=== PATIENT | male | born 2000 | race Caucasian/White ===

== ENCOUNTER 2023-02-12 10:19 | Emergency (ER) | payer BC, SELFPAY ==
[2023-02-12 10:20] VITALS: BP 144/66; PULSE 76; RESP 14; TEMP 36.7; O2SAT 98; BMI 37.2
--- NOTE | 2023-02-12 10:30 | US_ITS ---
INDICATION: PAIN EXAMINATION: Ultrasound US Abdomen Limited (quadrant) TECHNIQUE: Perkins scale and color doppler imaging was performed of the right upper quadrant. COMPARISON: FINDINGS: LIVER: . There is normal size measuring 16.9 cm in greatest dimension. There is fatty infiltration of the liver. No focal hepatic lesion. There is no free fluid. GALLBLADDER AND BILIARY TREE: No shadowing gallstone, pericholecystic fluid or gallbladder wall thickening is demonstrated. The proximal common bile duct measures 3.3 mm, which is within normal limits for the patient''s age. Songraphic Craig''s sign: Negative. PANCREAS: No focal abnormality is demonstrated in the pancreas. No pancreatic ductal dilatation. RIGHT KIDNEY: Right kidney appears within normal limits in size and echogenicity. US/Gallbladder IMPRESSION: Unremarkable ultrasound of the abdomen right upper quadrant. Electronically Signed: Surya Torre, at 11:52 EDT ,
--- NOTE | 2023-02-12 10:31 | EDS_ITS ---
HPI HPI - GI History of Present Illness Chief Complaint: Abd Pain Narrative Narrative: 22-year-old male past medical history of depression and anxiety for which he takes Lexapro, presents with nausea and vomiting and epigastric to right upper quadrant pain. He relates history that over the last 3 weeks he has had pain after eating mainly in the right upper quadrant to epigastrium. It is more of a sharp, stabbing pain at times. Today, although he has not eaten anything, he felt nauseated and had pain in the epigastrium to right upper quadrant. He started dry heaving, and may have vomited bilious material, but he could not stop retching. He noticed that later there were blood tinges in his bilious vomit. He denies any other bleeding diathesis, does not take any blood thinners. He does also note that he self diagnosed himself with GERD, and is trying to watch his diet because he wants to avoid taking medication. He is a smoker/vaper. He rarely drinks alcohol. He denies any exacerbating or alleviating factors. PFSH [facility] Home Medications omeprazole 20 mg capsule,delayed release 20 mg PO DAILY #30 CAPSULES 02/12/23 [Rx Last Taken Unknown] Allergy/AdvReac Type Severity Reaction Status Date / Time No Known Allergies Allergy Verified 02/12/23 10:22 ROS ROS ED ROS Narrative Constitutional: No fever, no chills. HEENT: No sore throat. No neck pain. No loss of vision. No rhinorrhea. Cardiovascular: No chest pain. No palpitations. No pedal edema. Respiratory: No cough, no shortness of breath. Abdominal: Epigastric to right upper quadrant abdominal pain. Positive nausea and vomiting today. Blood-tinged emesis, no ivelisse hematemesis. No diarrhea. Genitourinary: No dysuria. No hematuria. Musculoskeletal: No myalgias. No arthralgias. Neurologic: No headaches. No dizziness. No lightheadedness. Skin: No rash. No change in color. Psychiatric: No depression. No anxiety. EXAM Physical Exam Narrative Exam Narrative: Afebrile. Vital signs noted. HEENT: Normocephalic. Atraumatic. PERRL, EOMI. Neck soft and supple. No point tenderness or step off. Cardiovascular: Regular rate and rhythm. No murmurs, rubs, or gallops appreciated. Respiratory: No tachypnea. Lungs clear to auscultation bilaterally. Gastrointestinal: Abdomen soft, mild tenderness to palpation in the epigastrium to right upper quadrant, with normoactive bowel sounds. No rebound or guarding. Negative Craig sign. Neurological: Awake. Alert. Nonfocal, nonlateralizing. Skin: No rash. Normal color. No pallor. Musculoskeletal: No pedal edema. Full range of motion extremities. Const Vital Signs: 02/12/23 10:20 Temperature 98.1 F Temperature Source Temporal Pulse Rate 76 Respiratory Rate 14 Blood Pressure 144/66 H Blood Pressure Mean 92 Pulse Ox 98 Oxygen Delivery Method Room Air MDM MDM MDM Narrative Medical decision making narrative: Regarding the patient's blood tinged emesis, I do think that he probably has a Ambar-Castro tear. I do not feel NG tube is indicated. Given that he has had pain after eating, concern would be for biliary colic versus gallstone ingram creatitis. Comprehensive work-up was pursued. I do not feel CT imaging is indicated but rather ultrasound of the right upper quadrant. I will obtain laboratory work including CBC, CMP, and lipase. He declined any analgesia here or antiemetic. I reviewed his laboratory work and he has slightly elevated white count of 11.6 which I think is nonspecific or may be demargination from his retching. He has a hemoglobin normal at 14.4 with normal platelet count of 375. BUN normal at 13 with a creatinine of 0.98. I have low suspicion for upper GI bleed. Sodium normal at 140 with potassium normal at 4.0, chloride slightly elevated at 110. Lipase normal at 25. AST low at 10 with ALT 28 and a normal alk phos of 82. I reviewed the ultrasound report from radiology which shows unremarkable right upper quadrant ultrasound, no evidence of cholelithiasis or cholecystitis. At this point in time, I do feel he may have more of a gastritis with his GERD. He was told that he may have peptic ulcer disease and that he should follow-up with gastroenterology soon as possible. I wrote him a prescription for omeprazole and he can follow-up with his primary care physician as well. I do not feel he requires observation. I feel he be discharged safely home with follow-up. Return instructions to the emergency department were reviewed. Disposition is discharged home in stable condition. History & Record Review Additional record(s) reviewed:: No prior records Lab Data Attestation: I reviewed the patient's lab results. Labs: Laboratory Results - last 24 hr 02/12/23 10:40 WBC 11.6 H RBC 4.78 Hgb 14.4 Hct 44.4 MCV 92.9 MCH 30.1 MCHC 32.4 RDW Std Deviation 41.5 RDW Coeff of Jesus 12.1 Plt Count 375 MPV 9.8 Immature Gran % (Auto) 0.300 Neut % (Auto) 69.8 Lymph % (Auto) 12.9 L [place] % (Auto) 7.9 Eos % (Auto) 8.3 H Baso % (Auto) 0.8 Absolute Neuts (auto) 8.1 H Absolute Lymphs (auto) 1.50 Nucleated RBC % 0 Sodium 141 Potassium 4.0 Chloride 110 H Carbon Dioxide 27.0 Anion Gap 4 L BUN 13 Creatinine 0.98 Estim Creat Clear Calc 113.42 Est GFR (MDRD) Af Amer 121 Est GFR (MDRD) Non-Af 100 BUN/Creatinine Ratio 13.3 Glucose 95 Calcium 8.8 Total Bilirubin 0.30 AST 10 L ALT 20 Alkaline Phosphatase 82 Total Protein 7.6 Albumin 4.0 Globulin 3.6 Albumin/Globulin Ratio 1.1 Lipase 25 Radiography Diagnostic Testing: Clinical Impression(s) from Imaging Studies Gallbladder Ultrasound 02/12/23 10:30 IMPRESSION: Unremarkable ultrasound of the abdomen right upper quadrant. Electronically Signed: Surya Nicho, at 11:52 EDT Reading Location ID and State: [address] [place] [address] Tel , Service support , Discharge Plan Triage Chief Complaint: Abd Pain ED Provider: Felipe Araujo Dx/Rx/DC Orders Clinical Impression: Abdominal pain in male, GERD (gastroesophageal reflux disease) Instructions: ED GERD (Adult), ED Abdominal Pain Unkn Cause Male... Prescriptions: New omeprazole 20 mg capsule,delayed release(DR/EC) 20 mg PO DAILY Qty: 30 0RF Stand Alone Forms: ED Work / School Excuse Primary Care Provider: Lindsay Ireland Referrals: Lindsay Ireland DO [Primary Care Provider] - 3-5 Days if not improving Friend,DO Dagoberto [Med Staff - Active Staff] - As soon as possible Disposition Disposition: Home, Self Care
[2023-02-12] MEDS: 0.9% Normal Saline 1,000 ML 1000 ML IV (10:50)
[2023-02-12 10:52] LABS: Absolute Neutrophil Count 8.1 X10^3/uL (2.0-7.7); Basophil# 0.09 X10^3/uL; Basophil% 0.8 % (0-1); Eosinophil# 0.97 X10^3/uL; Eosinophils% 8.3 % (0-5); Hematocrit 44.4 % (40-54); Hemoglobin 14.4 g/dL (13.0-16.5); Lymphocyte % 12.9 % (19-41); Mean Corp Hgb Conc 32.4 g/dL (32-36); Mean Corpuscular Hgb 30.1 pg (27.0-32.0); Mean Corpuscular Volume 92.9 fL (80-94); Mean Platelet Vol. 9.8 fl (6.2-12.0); Monocyte# 0.92 X10^3/uL; Monocyte% 7.9 % (0-10); NRBC Flagged by Analyzer 0 % (0-5); Neutrophil # 8.11 X10^3/uL (2.7-7.7); Neutrophil % 69.8 % (47-70); Platelet Count 375 K/mm3 (150-450); RBC Distribution Width CV 12.1 % (11.6-14.6); RBC Distribution Width SD 41.5 fl (35.1-43.9); Red Blood Count 4.78 M/mm3 (4.6-6.2); White Blood Count 11.6 K/mm3 (4.4-11.0)
[2023-02-12 11:10] LABS: ALB/GLOB Ratio 1.1 RATIO (0.9-2.4); AST(SGOT) 10 U/L (15-37); Alanine Aminotransfer ALT/SGPT 20 U/L (16-61); Alkaline Phosphatase 82 U/L (45-117); Anion Gap 4 (5-15); BUN 13 mg/dL (7-18); BUN/Creat Ratio 13.3 RATIO (10-20); Calcium,Total 8.8 mg/dL (8.5-10.1); Chloride 110 mmol/L (98-107); Creatinine, Serum 0.98 mg/dL (0.70-1.30); EST Glomerular Filtration Rate 100 mL/min (>60); Est Glom Filt Rate - Afr Amer 121 mL/min (>60); Estimated Creatinine Clearance 113.42 ml/min; Globulin 3.6 g/dL (2.2-4.2); Glucose 95 mg/dL (74-106); Lipase 25 U/L (13-75); Protein, Total 7.6 g/dL (6.4-8.2); Sodium Level 141 mmol/L (136-145)
== END 2023-02-12 12:23 | disposition home or self-care (01) ==
PROVIDERS: Emergency Provider Emergency Medicine; PCP Internal Medicine; Visit Provider Emergency Medicine
DX: R10.11 Right upper quadrant pain (principal); K21.9 Gastro-esophageal reflux disease without esophagitis; F17.290 Nicotine dependence, other tobacco product, uncomplicated
CPT/HCPCS: 76705; 80053; 83690; 85025; 96360; 99283; J7030; A4216

== ENCOUNTER 2023-08-13 12:46 | Emergency (ER) | payer BC, SELFPAY ==
[2023-08-13 12:48] VITALS: BP 135/60; PULSE 75; RESP 18; TEMP 36.6; O2SAT 99; BMI 35.5
[2023-08-13 14:17] LABS: Absolute Lymphocyte Count 1.71 X10^3/uL (0.83-4.51); Basophil# 0.06 X10^3/uL; Basophil% 0.7 % (0-1); Eosinophil# 0.51 X10^3/uL; Eosinophils% 5.7 % (0-5); Hematocrit 40.9 % (40-54); Hemoglobin 13.4 g/dL (13.0-16.5); Lymphocyte # 1.71 X10^3/ul (0.83-4.51); Lymphocyte % 19.2 % (19-41); Mean Corp Hgb Conc 32.8 g/dL (32-36); Mean Corpuscular Hgb 30.2 pg (27.0-32.0); Mean Corpuscular Volume 92.1 fL (80-94); Mean Platelet Vol. 9.5 fl (6.2-12.0); Monocyte# 0.56 X10^3/uL; Monocyte% 6.3 % (0-10); NRBC Flagged by Analyzer 0 % (0-5); Neutrophil # 6.04 X10^3/uL (2.7-7.7); Neutrophil % 67.8 % (47-70); Platelet Count 429 K/mm3 (150-450); RBC Distribution Width CV 11.9 % (11.6-14.6); RBC Distribution Width SD 40.2 fl (35.1-43.9); Red Blood Count 4.44 M/mm3 (4.6-6.2); White Blood Count 8.9 K/mm3 (4.4-11.0)
[2023-08-13 14:50] LABS: AST(SGOT) 16 U/L (15-37); Alanine Aminotransfer ALT/SGPT 27 U/L (16-61); Albumin, Serum 4.1 g/dL (3.2-5.0); Alkaline Phosphatase 73 U/L (45-117); Anion Gap 2 (5-15); BUN 13 mg/dL (7-18); BUN/Creat Ratio 12.5 RATIO (10-20); Calcium,Total 9.4 mg/dL (8.5-10.1); Chloride 106 mmol/L (98-107); Creatinine, Serum 1.04 mg/dL (0.70-1.30); EST Glomerular Filtration Rate 93 mL/min (>60); Est Glom Filt Rate - Afr Amer 113 mL/min (>60); Estimated Creatinine Clearance 129.29 ml/min; Glucose 88 mg/dL (74-106); Potassium 4.5 mmol/L (3.5-5.1); Protein, Total 8.1 g/dL (6.4-8.2); Sodium Level 135 mmol/L (136-145)
--- NOTE | 2023-08-13 15:53 | EDS_ITS ---
HPI History of Present Illness Chief Complaint: Nausea/Vomiting Informant: patient Onset/Context/Timing Onset: Month(s) Narrative Narrative: Patient presents secondary to intermittent epigastric pain with nausea and vomiting ongoing for the last several months. Patient was seen last January and thought to have reflux disease. He was prescribed omeprazole. He states after couple weeks he noticed it was not really helping as much so he stopped taking it. He would use intermittently until about a month ago and has not taken anything for the last month. He continues to have intermittent pain which is usually in the upper abdomen but occasionally in the left lower quadrant. He will often have vomiting or become very nauseous. He has had 2 episodes in the last week where he vomited up what he thought was coffee-ground emesis. He has not noted any blood in his stool. No fever or chills. [facility] Medical History (Updated 08/13/23 @ 16:[address] Maria L Jones MD) ADHD Depression Hx of gastroesophageal reflux (GERD) Home Medications escitalopram oxalate 10 mg tablet 10 mg PO DAILY 02/12/23 [History Last Taken Unknown] omeprazole 20 mg capsule,delayed release 20 mg PO DAILY #30 CAPSULES 02/12/23 [Rx Last Taken Unknown] ondansetron 4 mg disintegrating tablet 4 mg PO Q8H PRN PRN Nausea #10 tabs 08/13/23 [Rx Last Taken Unknown] pantoprazole 40 mg tablet,delayed release (Protonix) 40 mg PO DAILY 8 weeks #56 tabs 08/13/23 [Rx Last Taken Unknown] Allergy/AdvReac Type Severity Reaction Status Date / Time No Known Allergies Allergy Verified 08/13/23 12:48 Surgical History no surgical history no surgical history Social History Smoking Status: Never smoker ROS ROS ED Constitutional Constitutional ED: Denies chills or fever(s) Eyes Eyes: Denies change in vision or discharge from eye(s) ENT ENT ED: Denies discharge from eye(s), rhinorrhea or sore throat Cardiovascular Cardiovascular: Denies chest pain or palpitations Respiratory/Chest Respiratory/Chest: Denies cough or dyspnea Gastrointestinal Gastrointestinal: Reports abdominal pain, nausea and vomiting; Denies diarrhea Genitourinary Genitourinary ED: Denies difficulty urinating or dysuria Musculoskeletal Musculoskeletal: Denies back pain or extremity pain Integumentary Denies Abrasions or rash Neurologic Neurologic: Denies headache(s) or weakness Allergic/Immunologic Allergic/Immunologic ED: Denies lip swelling or urticaria EXAM Physical Exam Const Vital Signs: 08/13/23 12:48 Temperature 98 F Temperature Source Temporal Pulse Rate 75 Respiratory Rate 18 Blood Pressure 135/60 H Blood Pressure Mean 85 Pulse Ox 99 Oxygen Delivery Method Room Air Positive well nourished and well developed General Appearance ED: well developed HEENT Reports normocephalic and head/scalp atraumatic Eyes PERRL and EOMs intact bilaterally Neck supple Chest Wall inspection of chest normal and palpation of chest normal Resp normal respiratory effort and clear to auscultation bilaterally Cardio regular rate and regular rhythm GI GI Narrative: Minimal tenderness in the epigastrium. No guarding or rebound. Active bowel sounds noted throughout. Palpation: soft Extremity normal to inspection Neuro oriented x3 and no sensory deficits noted Sensorium / Orientation: alert Motor Exam: strength 5/5 throughout Psych mental status grossly normal Skin no rashes or lesions noted MDM MDM MDM Narrative Medical decision making narrative: IV line established. Patient given IV fluids and IV Protonix. Labwork obtained to evaluate for leukocytosis, anemia, and electrolyte derangement. Lab Data Attestation: I reviewed the patient's lab results. Labs: Laboratory Results - last 24 hr 08/13/23 08/13/23 14:02 16:05 WBC 8.9 RBC 4.44 L Hgb 13.4 Hct 40.9 MCV 92.1 MCH 30.2 MCHC 32.8 RDW Std Deviation 40.2 RDW Coeff of Jesus 11.9 Plt Count 429 MPV 9.5 Immature Gran % (Auto) 0.300 Neut % (Auto) 67.8 Lymph % (Auto) 19.2 Tripp % (Auto) 6.3 Eos % (Auto) 5.7 H Baso % (Auto) 0.7 Absolute Neuts (auto) 6.0 Absolute Lymphs (auto) 1.71 Nucleated RBC % 0 Sodium 135 L Potassium 4.5 Chloride 106 Carbon Dioxide 27.0 Anion Gap 2 L BUN 13 Creatinine 1.04 Estim Creat Clear Calc 129.29 Est GFR (MDRD) Af Amer 113 Est GFR (MDRD) Non-Af 93 BUN/Creatinine Ratio 12.5 Glucose 88 Calcium 9.4 Total Bilirubin 0.60 AST 16 ALT 27 Alkaline Phosphatase 73 Total Protein 8.1 Albumin 4.1 Globulin 4.0 Albumin/Globulin Ratio 1.0 Lipase 25 Urine Color Yellow Urine Clarity Clear Urine pH 7.0 Ur Specific [place] 1.010 Urine Protein Negative Urine Glucose (UA) Normal Urine Ketones 15 H Urine Occult Blood Negative Urine Nitrite Negative Urine Bilirubin Negative Urine Urobilinogen Normal Ur Leukocyte Esterase Negative Urine RBC 0 SEEN Urine WBC 0 SEEN Ur Squamous Epith Cells 0 SEEN Amorphous Sediment 1+ Urine Bacteria 0 SEEN Urine Mucus 0 SEEN Treatment and Re-Evaluation :: CBC was normal white count with a hemoglobin of 13.4. Normal differential. Chemistry studies significant only for slightly low sodium at 135. LFTs and lipase are normal. Urinalysis reveals 15 ketones but no other acute findings. On repeat evaluation patient resting comfortably. Test results discussed with him. I will write him a course of Protonix and refer him to GI for potential EGD if not improving. Patient voices understanding and agreement. Return instructions given. Discharge Plan Triage Chief Complaint: Nausea/Vomiting ED Provider: Maria L Jones Dx/Rx/DC Orders Clinical Impression: Gastroesophageal reflux disease Instructions: ED GERD (Adult) Prescriptions: New pantoprazole [Protonix] 40 mg tablet,delayed release (DR/EC) 40 mg PO DAILY 56 Days Qty: 56 0RF ondansetron 4 mg tablet,disintegrating 4 mg PO Q8H PRN PRN (Reason: Nausea) Qty: 10 0RF No Action omeprazole 20 mg capsule,delayed release(DR/EC) 20 mg PO DAILY Qty: 30 0RF escitalopram oxalate 10 mg tablet 10 mg PO DAILY Patient Comments: TAKE 1 TABLET BY MOUTH EVERY DAY Primary Care Provider: Lindsay Ireland Referrals: Lindsay Ireland DO [Primary Care Provider] - 1-2 Weeks Dagoberto Ruvalcaba DO [Med Staff - Active Staff] - 1-2 Weeks Disposition Disposition: Home, Self Care
[2023-08-13] MEDS: 0.9% Normal Saline (1000mL) 1,000 ML 1000 ML IV (16:04)
[2023-08-13 16:10] LABS: Bacteria 0 SEEN /hpf (None Seen); Mucous, Urine 0 SEEN /hpf (<or=2+); Red Blood Cells-Urine 0 SEEN /hpf (0-5); Squamous Epithelial Cells - UA 0 SEEN /hpf (0-5); White Blood Cells 0 SEEN /hpf (0-5)
[2023-08-13 16:19] LABS: Color, Urine Yellow (Yellow); Glucose, Dipstick Normal (Normal); Ketone-Dipstick 15 mg/dl (Negative); Leukocyte Esterase-Dipstick Negative /ul (Negative); Nitrite-Dipstick Negative (Negative); Occult Blood-Urine Negative /ul (Negative); Protein-Dipstick Negative (Negative); Urine Bilirubin Dipstick Negative (Negative); Urine Clarity Clear (Clear); Urine Urobilinogen Normal (Normal)
[2023-08-13] MEDS: Pantoprazole Sodium 40 MG in 0.9% Normal Saline (100mL MB+) 100 ML 330 MG IV (16:28)
[2023-08-13 16:43] LABS: Amorphous Sediment 1+
[2023-08-13 16:48] LABS: Lipase 25 U/L (13-75)
[2023-08-13 17:05] VITALS: BP 123/66; PULSE 86; RESP 14; TEMP 37.2
== END 2023-08-13 16:45 | disposition home or self-care (01) ==
PROVIDERS: Emergency Provider Emergency Medicine; PCP Internal Medicine; Visit Provider Emergency Medicine
DX: K21.9 Gastro-esophageal reflux disease without esophagitis (principal); F32.A Depression, unspecified; F90.9 Attention-deficit hyperactivity disorder, unspecified type; Z79.899 Other long term (current) drug therapy
CPT/HCPCS: 80053; 81001; 83690; 85025; 96365; 99283; J7030; A4216

== ENCOUNTER → 2024-04-06 | Outpatient (CLI) | payer BC, SELFPAY ==
--- NOTE | 2024-04-06 16:34 | CT_ITS ---
STUDY: CT ABDOMEN AND PELVIS WITH CONTRAST REASON FOR EXAM: Male, 23 years old. ABDOMEN PAIN RADIATION DOSAGE (If Supplied By Facility): CTDIvol = ( 16.74 ) mGy, DLP = ( 1349.85 ) mGycm TECHNIQUE: Transaxial images were obtained from the dome of the diaphragm to the symphysis pubis with oral contrast. Oral and amp;amp; IV Readi-CAT and amp;amp; 100mL Isovue-370 was administered. Sagittal and coronal images were reconstructed. Individualized dose optimization techniques were used for this CT. COMPARISON: None. FINDINGS: The visualized lung bases are unremarkable. The visualized portions of the heart are within normal limits. Normal liver. Normal gallbladder and extrahepatic biliary system. Normal spleen. Normal pancreas. Normal bilateral adrenal glands. Normal right kidney. Normal left kidney. Normal visualized stomach. Normal small intestine. Normal colon. The appendix is visualized and appears normal. Normal abdominal aorta. Normal inferior vena cava. Normal retroperitoneum. Normal urinary bladder. Normal abdominal wall. Normal osseous structures. CT/Abdomen/Pelvis WITH Contrast IMPRESSION: Normal enhanced CT of the abdomen and pelvis. Electronically Signed: Jayden Drake MD at 10:36 EDT ,
== END | disposition home or self-care (01) ==
LOC: CT 16:32
PROVIDERS: PCP Internal Medicine; Referring Provider Internal Medicine; Visit Provider Internal Medicine
DX: R10.84 Generalized abdominal pain (principal)
CPT/HCPCS: 74177; Q9967

== ENCOUNTER → 2024-05-06 | Outpatient (CLI) | payer BC, SELFPAY ==
--- NOTE | 2024-05-06 10:40 | NM_ITS ---
CLINICAL: 23-year-old male with history of chronic nausea. RADIONUCLIDE HEPATOBILIARY SCINTIGRAPHY COMPARISON: CT of the abdomen-pelvis report 04/06/2024 FINDINGS: Following the intravenous administration of 5.3 mCi of 99m Tc Mebrofenin, hepatobiliary images reveal: 1. Relatively prompt and homogeneous radiopharmaceutical concentration is noted by a normal sized liver. No parenchymal defects are identified. 2. Gallbladder activity is identified at 15 minutes post radiopharmaceutical administration. 3. Small intestinal tract is not visualized during 60 minutes of pre-CCK sequential imaging. Small bowel activity is identified following the administration of cholecystokinin. 4. Washout of the radiopharmaceutical by the hepatic parenchyma appears qualitatively normal. Cholecystokinin (0.02 ug/kg) was administered intravenously over a 30-minute period. The post CCK gallbladder ejection fraction calculated at 20 minutes following Cholecystokinin administration was noted to be 19.0 % (normal greater than 35%). KS/Hepatobilliary Img w/Pharm Int IMPRESSION: 1. ABNORMAL 99m Tc Mebrofenin hepatobiliary imaging examination with Cholecystokinin. A. A gallbladder ejection fraction calculated to be less than 35% following the administration of Cholecystokinin is consistent with the presence of functional hepatobiliary disease (gallbladder and/or sphincter of Oddi dyskinesia) and/or organic hepatobiliary disease (chronic acalculous cholecystitis and/or cystic duct syndrome) in patients with intermediate to high pretest likelihoods of hepatobiliary illness. (Ilia Bradshaw et al, Journal of Nuclear Medicine 32:1695, 1991). B. Failure to demonstrate small bowel activity prior to CCK administration may represent incomplete bile duct obstruction in the appropriate clinical context. Electronically Signed: Jam Leyva DO at 9:23 EDT ,
== END | disposition home or self-care (01) ==
LOC: NM 10:38
PROVIDERS: PCP Internal Medicine; Referring Provider Internal Medicine; Visit Provider Internal Medicine Gastroenterology
DX: R11.0 Nausea (principal)
CPT/HCPCS: 78227; A9537; J2805